=== PATIENT | female | born 1955 | race Caucasian/White ===

== ENCOUNTER 2018-09-10 14:56 | Outpatient (CLI) | payer MEDICARE, MEDICAID ==
[~2018-09-10 14:56] MED LIST: DEXL60CA3 PO; FIORINAL PO; GABA-338 PO; GUAI600T45 PO; IBUP-1986 PO; PHEN-786 PO; ROSU10TA PO; TRAZ50TA54 PO; ZOL50T PO
[2018-09-10 16:02] LABS: BASOPHILS % (AUTO) 0.7 % (0-1); EOSINOPHILS # (AUTO) 0.1 X10'3 (0-0.9); EOSINOPHILS % (AUTO) 2.6 % (0-6); HEMATOCRIT 44.2 % (35.0-45.0); LYMPHOCYTES # (AUTO) 1.4 X10'3 (1.1-4.8); LYMPHOCYTES % (AUTO) 25.4 % (21-51); MEAN CORPUSCULAR HEMOGLOBIN 36.2 PG (27.0-31.0); MEAN CORPUSCULAR HGB CONC 33.9 g/dL (33.0-36.5); MEAN CORPUSCULAR VOLUME 106.7 FL (78-98); MEAN PLATELET VOLUME 6.6 FL (7.4-10.4); MONOCYTES # (AUTO) 0.5 X10'3 (0-0.9); MONOCYTES % (AUTO) 8.9 % (2-12); NEUTROPHILS # (AUTO) 3.5 X10'3 (1.8-7.7); NEUTROPHILS % (AUTO) 62.4 % (42-75); PLATELET COUNT 341 X10'3 (140-440); RED BLOOD COUNT 4.15 X10'6 (4.20-5.60); RED CELL DISTRIBUTION WIDTH 13.5 % (11.5-14.5); WHITE BLOOD COUNT 5.7 X10'3 (4.5-11.0)
[2018-09-10 16:17] LABS: ALANINE AMINOTRANSFERASE 30 U/L (12-78); ALBUMIN 3.7 G/DL (3.4-5.0); ALKALINE PHOSPHATASE 120 IU/L (46-116); ANION GAP 11 (8-16); ASPARTATE AMINO TRANSFERASE 18 U/L (10-37); BILIRUBIN,TOTAL 0.3 MG/DL (0.1-1.0); BLOOD UREA NITROGEN 11 MG/DL (7-18); BUN/CREATININE RATIO 12.8 (6.6-38.0); CHLORIDE 107 MMOL/L (99-107); CREATININE 0.86 MG/DL (0.40-0.90); GLUCOSE 98 MG/DL (70-104); POTASSIUM 4.1 MMOL/L (3.5-5.1); SODIUM 143 MMOL/L (135-145); TOTAL CARBON DIOXIDE 25.2 MMOL/L (24-32); TOTAL PROTEIN 7.3 G/DL (6.4-8.2); eGFR 66 ML/MIN
[2018-09-10 16:30] LABS: PARTIAL THROMBOPLASTIN TIME 29 SECONDS (22-32)
== END 2018-09-10 23:59 | disposition home or self-care (01) ==
LOC: LAB 14:56
PROVIDERS: ATTEND Otolaryngology
DX: D69.1 Qualitative platelet defects (principal); I10 Essential (primary) hypertension; Z90.710 Acquired absence of both cervix and uterus; Z87.891 Personal history of nicotine dependence
CPT/HCPCS: 36415; 80053; 85025; 85576; 85610; 85730

== ENCOUNTER 2019-04-29 19:40 | Emergency (ER) | payer MEDICARE, MEDICAID ==
[~2019-04-29] VITALS: Ht 157.5 cm; Wt 65.9 kg
[~2019-04-29 19:40] MED LIST changes: -ROSU10TA PO; +ROSU10TA2 PO; +SERT-153 PO; -ZOL50T PO
[2019-04-29] MEDS ORDERED: ringers solution, lactated 1000ml IV soln IV ONE (20:10)
[2019-04-29 20:37] LABS: UA COLLECTION TYPE CLN CATCH MIDSTREAM
[2019-04-29 20:38] LABS: CLARITY,URINE CLEAR (Clear); COLOR,URINE YELLOW (Yellow); GLUCOSE, URINE NEGATIVE (Neg); KETONES,URINE NEGATIVE (Neg); LEUKOCYTE ESTERASE ,URINE NEGATIVE (Neg); NITRITES, URINE NEGATIVE (Neg); OCCULT BLOOD,URINE NEGATIVE (Neg); PROTEIN,URINE NEGATIVE (Neg); UROBILINOGEN,URINE 0.2 E.U/dL (0.2-1.0)
[2019-04-29 20:44] LABS: BASOPHILS # (AUTO) 0.1 X10'3 (0-0.2); BASOPHILS % (AUTO) 0.6 % (0-1); EOSINOPHILS # (AUTO) 0.2 X10'3 (0-0.9); EOSINOPHILS % (AUTO) 1.8 % (0-6); HEMATOCRIT 46.2 % (35.0-45.0); HEMOGLOBIN 15.9 g/dl (12.0-16.0); LYMPHOCYTES # (AUTO) 1.9 X10'3 (1.1-4.8); MEAN CORPUSCULAR HEMOGLOBIN 37.5 PG (27.0-31.0); MEAN CORPUSCULAR HGB CONC 34.4 g/dL (33.0-36.5); MEAN CORPUSCULAR VOLUME 109.1 FL (78-98); MEAN PLATELET VOLUME 6.6 FL (7.4-10.4); MONOCYTES # (AUTO) 0.7 X10'3 (0-0.9); MONOCYTES % (AUTO) 7.2 % (2-12); NEUTROPHILS # (AUTO) 6.3 X10'3 (1.8-7.7); NEUTROPHILS % (AUTO) 69.4 % (42-75); PLATELET COUNT 321 X10'3 (140-440); RED BLOOD COUNT 4.23 X10'6 (4.20-5.60); RED CELL DISTRIBUTION WIDTH 13.7 % (11.5-14.5); WHITE BLOOD COUNT 9.1 X10'3 (4.5-11.0)
[2019-04-29 20:55] LABS: ALANINE AMINOTRANSFERASE 32 U/L (12-78); ALBUMIN 4.1 G/DL (3.4-5.0); ALBUMIN/GLOBULIN RATIO 1.1 (1.1-1.5); ALKALINE PHOSPHATASE 130 IU/L (46-116); ANION GAP 13 (8-16); ASPARTATE AMINO TRANSFERASE 21 U/L (10-37); BILIRUBIN,TOTAL 0.4 MG/DL (0.1-1.0); BLOOD UREA NITROGEN 11 MG/DL (7-18); BUN/CREATININE RATIO 13.4 (6.6-38.0); CHLORIDE 107 MMOL/L (99-107); CREATININE 0.82 MG/DL (0.40-0.90); GLUCOSE 98 MG/DL (70-104); POTASSIUM 3.9 MMOL/L (3.5-5.1); SODIUM 141 MMOL/L (135-145); TOTAL CARBON DIOXIDE 21.4 MMOL/L (24-32); TOTAL PROTEIN 7.9 G/DL (6.4-8.2); eGFR 70 ML/MIN
[2019-04-29] MEDS ORDERED: iohexol 300mg/ml 100ml inj. ONE (21:09)
[2019-04-29 21:44] VITALS: BP 162/79
== END 2019-04-29 22:58 | disposition home or self-care (01) ==
LOC: ER 19:43
DX: R10.31 Right lower quadrant pain (principal); R19.7 Diarrhea, unspecified; E78.00 Pure hypercholesterolemia, unspecified; I10 Essential (primary) hypertension; K21.9 Gastro-esophageal reflux disease without esophagitis; F31.9 Bipolar disorder, unspecified; Z90.49 Acquired absence of other specified parts of digestive tract; Z87.11 Personal history of peptic ulcer disease; Z90.710 Acquired absence of both cervix and uterus; Z98.890 Other specified postprocedural states; Z88.5 Allergy status to narcotic agent; Z79.899 Other long term (current) drug therapy
CPT/HCPCS: 36415; 74177; 80053; 81003; 83605; 85025; 85610; 96360; 99284; J7030; Q9967; 87324; 87449; J7120

== ENCOUNTER 2021-11-12 15:46 | Outpatient (CLI) | payer MEDICARE, MEDICAID | END 2021-11-12 23:59 | disposition home or self-care (01) | LOC: CARD DIAG 15:46 | PROVIDERS: ATTEND Family Medicine | DX: I08.0 Rheumatic disorders of both mitral and aortic valves (principal) | CPT/HCPCS: 93306 ==

== ENCOUNTER 2022-04-08 10:17 | Emergency (ER) | payer MEDICARE, MEDICAID ==
[~2022-04-08] VITALS: Ht 157.5 cm; Wt 63.6 kg
[2022-04-08 11:21] LABS: CLARITY,URINE SLIGHTLY CLOUDY (Clear); GLUCOSE, URINE NEGATIVE (Neg); KETONES,URINE NEGATIVE (Neg); LEUKOCYTE ESTERASE ,URINE SMALL (Neg); NITRITES, URINE NEGATIVE (Neg); OCCULT BLOOD,URINE TRACE-INTACT (Neg); PROTEIN,URINE NEGATIVE (Neg); UROBILINOGEN,URINE 0.2 E.U/dL (0.2-1.0)
[2022-04-08 11:22] LABS: COLOR,URINE STRAW (Yellow); UA COLLECTION TYPE CLN CATCH MIDSTREAM
[2022-04-08 11:23] LABS: BASOPHILS % (AUTO) 0.4 % (0-1); EOSINOPHILS # (AUTO) 0.2 X10'3 (0-0.9); EOSINOPHILS % (AUTO) 2.2 % (0-6); HEMATOCRIT 39.9 % (35.0-45.0); LYMPHOCYTES % (AUTO) 24.6 % (21-51); MEAN CORPUSCULAR HEMOGLOBIN 35.7 PG (27.0-31.0); MEAN CORPUSCULAR HGB CONC 35.1 g/dL (33.0-36.5); MEAN CORPUSCULAR VOLUME 101.8 FL (78-98); MEAN PLATELET VOLUME 6.6 FL (7.4-10.4); MONOCYTES # (AUTO) 0.7 X10'3 (0-0.9); MONOCYTES % (AUTO) 8.8 % (2-12); NEUTROPHILS # (AUTO) 5.2 X10'3 (1.8-7.7); PLATELET COUNT 298 X10'3 (140-440); RED BLOOD COUNT 3.92 X10'6 (4.20-5.60); RED CELL DISTRIBUTION WIDTH 13.3 % (11.5-14.5); WHITE BLOOD COUNT 8.1 X10'3 (4.5-11.0)
[2022-04-08 11:29] LABS: MUCUS STRANDS FEW /LPF (Neg); SQUAMOUS EPITHELIAL CELL,UR MODERATE /LPF (FEW); TRANSITIONAL EPI CELLS,URINE MODERATE /HPF
[2022-04-08 11:30] LABS: WBC CLUMPS,URINE MANY /HPF (NEGATIVE); WBC,URINE 20-30 /HPF (0-4)
[2022-04-08 11:31] LABS: BACTERIA,URINE FEW /HPF (Neg); RBC,URINE 0-2 /HPF (0-2)
[2022-04-08 11:38] LABS: ALANINE AMINOTRANSFERASE 21 U/L (12-78); ALBUMIN 3.7 G/DL (3.4-5.0); ALBUMIN/GLOBULIN RATIO 0.9 (1.1-1.5); ALKALINE PHOSPHATASE 116 IU/L (46-116); AMYLASE 68 U/L (25-115); ANION GAP 12 (8-16); ASPARTATE AMINO TRANSFERASE 22 U/L (10-37); BILIRUBIN,TOTAL 0.4 MG/DL (0.1-1.0); BLOOD UREA NITROGEN 11 MG/DL (7-18); BUN/CREATININE RATIO 12.2 (6.6-38.0); CALCIUM 9.5 MG/DL (8.5-10.1); CHLORIDE 105 MMOL/L (99-107); GLUCOSE 109 MG/DL (70-104); LIPASE 217 U/L (73-393); SODIUM 140 MMOL/L (135-145); TOTAL PROTEIN 7.6 G/DL (6.4-8.2); eGFR 62 ML/MIN
[2022-04-08 11:47] LABS: POTASSIUM 2.9 MMOL/L (3.5-5.1)
[2022-04-08] MEDS ORDERED: potassium Cl 20 mEq SR tablet PO STA (11:50)
[2022-04-08] MEDS ORDERED: FOSFOMYCIN TROMETHAMINE 3 GM PACKET PO ONE (12:45)
--- NOTE | 2022-04-08 12:58 | NUR ---
Spoke to pharmacy regarding abx, as pt has vancomycin allergy. Per pharmacist, pt ok to have fosfomycin.
[2022-04-08 13:20] VITALS: BP 140/69
== END 2022-04-08 13:30 | disposition home or self-care (01) ==
LOC: ER 10:18
DX: N39.0 Urinary tract infection, site not specified (principal); I10 Essential (primary) hypertension; K21.9 Gastro-esophageal reflux disease without esophagitis; E78.00 Pure hypercholesterolemia, unspecified; F31.9 Bipolar disorder, unspecified; Z90.49 Acquired absence of other specified parts of digestive tract; Z88.5 Allergy status to narcotic agent; Z88.1 Allergy status to other antibiotic agents; Z79.899 Other long term (current) drug therapy; Z88.6 Allergy status to analgesic agent
CPT/HCPCS: 36415; 71045; 80053; 81001; 82150; 83690; 85025; 87088; 99284

== ENCOUNTER 2022-05-21 08:41 | Inpatient (IN) | payer MEDICARE, MEDICAID ==
[~2022-05-21] VITALS: Ht 157.5 cm; Wt 63.2 kg
[2022-05-21] VITALS (24 sets, daily range): BP systolic 90–156; BP diastolic 59–118
[2022-05-21] MEDS ORDERED: normal saline 1000ml 1,000 ML IV PRN (09:05)
[2022-05-21] MEDS ORDERED: albumin 25% 100mL bottle x 1 IV PRN (09:05)
[2022-05-21 09:43] LABS: BASOPHILS # (AUTO) 0.1 X10'3 (0-0.2); BASOPHILS % (AUTO) 0.7 % (0-1); EOSINOPHILS # (AUTO) 0.2 X10'3 (0-0.9); EOSINOPHILS % (AUTO) 2.5 % (0-6); HEMATOCRIT 42.8 % (35.0-45.0); HEMOGLOBIN 14.5 g/dl (12.0-16.0); LYMPHOCYTES # (AUTO) 1.9 X10'3 (1.1-4.8); LYMPHOCYTES % (AUTO) 21.3 % (21-51); MEAN CORPUSCULAR HEMOGLOBIN 35.4 PG (27.0-31.0); MEAN CORPUSCULAR HGB CONC 33.9 g/dL (33.0-36.5); MEAN CORPUSCULAR VOLUME 104.6 FL (78-98); MEAN PLATELET VOLUME 6.4 FL (7.4-10.4); MONOCYTES # (AUTO) 0.9 X10'3 (0-0.9); MONOCYTES % (AUTO) 10.4 % (2-12); NEUTROPHILS # (AUTO) 5.9 X10'3 (1.8-7.7); NEUTROPHILS % (AUTO) 65.1 % (42-75); PLATELET COUNT 377 X10'3 (140-440); RED CELL DISTRIBUTION WIDTH 13.6 % (11.5-14.5); WHITE BLOOD COUNT 9.1 X10'3 (4.5-11.0)
[2022-05-21] MEDS ORDERED: ASPI-1264 PO (09:50)
[2022-05-21] MEDS ORDERED: SERT-432 PO (09:50)
[2022-05-21] MEDS ORDERED: METO-384 PO (09:50)
[2022-05-21] MEDS ORDERED: MONT-40 PO (09:50)
[2022-05-21] MEDS ORDERED: PROC-8 PO (09:51)
[2022-05-21] MEDS ORDERED: combivent inhaler (09:52)
[2022-05-21] MEDS ORDERED: LACT1CAP65 PO (09:53)
[2022-05-21] MEDS ORDERED: MULT-1074 PO (09:54)
[2022-05-21] MEDS ORDERED: [UNRECOGNIZED DRUG - OTHER] (09:54)
[2022-05-21] MEDS ORDERED: midazolam 1 mg/ML 2ml injection ONE ×2 (10:38→11:19)
[2022-05-21] MEDS ORDERED: fentaNYL/PF 50MCG/1 ML 2ML syringe ONE (10:38)
[2022-05-21] MEDS ORDERED: LIDOcaine 1% (10mg/ml) 2ml vial ONE ×2 (11:30→11:33)
[2022-05-21] MEDS ORDERED: IBUP-1984 PO (14:15)
[2022-05-21] MEDS ORDERED: magnesium hydroxide 30ml (MOM) UD suspension PO PRN (14:55)
[2022-05-21] MEDS ORDERED: mag hydrox/Alum hydrox/simeth 30ml oral suspension PO PRN (14:55)
[2022-05-21] MEDS ORDERED: acetaminophen 325mg tablet PO PRN (14:55)
[2022-05-21] MEDS ORDERED: LORazepam 0.5 MG tablet PO PRN (14:55)
[2022-05-21] MEDS ORDERED: ondansetron/PF 4mg/2ml inj IV PRN (14:55)
[2022-05-21] MEDS ORDERED: HYDROcodone/acetaminophen 5mg/325mg tablet PO PRN (14:55)
[2022-05-21] MEDS ORDERED: nicotine 14mg patch - 24hr TD ONE (15:10)
[2022-05-21] MEDS: HYDROcodone/acetaminophen 5mg/325mg tablet PO PRN (15:27)
[2022-05-21] MEDS ORDERED: ibuprofen tablet 400 MG TABLET PO PRN (16:10)
[2022-05-21] MEDS: docusate sod 100mg capsule PO SCH (20:44)
[2022-05-21] MEDS: traZODone 50mg tablet PO SCH (20:44)
[2022-05-21] MEDS: gabapentin 300mg capsule PO SCH (20:44)
[2022-05-21] MEDS ORDERED: montelukast 10mg tablet PO SCH (20:50)
[2022-05-21] MEDS: normal saline 1000ml 1,000 ML IV SCH (20:52)
--- NOTE | 2022-05-21 20:53 | NUR ---
Adjusted Singular and Zoloft administration time as patient takes those medications at HS at home not in the AM.
[2022-05-22] MEDS: sertraline 25mg tablet PO SCH ×2 (00:22→00:23)
[2022-05-22] MEDS: HYDROcodone/acetaminophen 5mg/325mg tablet PO PRN ×2 (00:31→09:07)
[2022-05-22] MEDS: normal saline 1000ml 1,000 ML IV SCH ×2 (01:53→11:55)
[2022-05-22 06:00] VITALS: BP 148/66
[2022-05-22 06:01] LABS: BASOPHILS # (AUTO) 0.1 X10'3 (0-0.2); BASOPHILS % (AUTO) 0.8 % (0-1); EOSINOPHILS # (AUTO) 0.2 X10'3 (0-0.9); EOSINOPHILS % (AUTO) 3.2 % (0-6); HEMATOCRIT 37.7 % (35.0-45.0); HEMOGLOBIN 12.9 g/dl (12.0-16.0); LYMPHOCYTES # (AUTO) 2.5 X10'3 (1.1-4.8); LYMPHOCYTES % (AUTO) 36.9 % (21-51); MEAN CORPUSCULAR HEMOGLOBIN 36.1 PG (27.0-31.0); MEAN CORPUSCULAR HGB CONC 34.2 g/dL (33.0-36.5); MEAN CORPUSCULAR VOLUME 105.8 FL (78-98); MEAN PLATELET VOLUME 6.3 FL (7.4-10.4); MONOCYTES # (AUTO) 0.7 X10'3 (0-0.9); MONOCYTES % (AUTO) 10.4 % (2-12); NEUTROPHILS # (AUTO) 3.4 X10'3 (1.8-7.7); NEUTROPHILS % (AUTO) 48.7 % (42-75); PLATELET COUNT 297 X10'3 (140-440); RED BLOOD COUNT 3.56 X10'6 (4.20-5.60); RED CELL DISTRIBUTION WIDTH 13.4 % (11.5-14.5); WHITE BLOOD COUNT 6.9 X10'3 (4.5-11.0)
[2022-05-22 06:22] LABS: ALBUMIN 3.2 G/DL (3.4-5.0); ANION GAP 6 (8-16); BLOOD UREA NITROGEN 12 MG/DL (7-18); BUN/CREATININE RATIO 14.1 (6.6-38.0); CALCIUM 8.6 MG/DL (8.5-10.1); CHLORIDE 110 MMOL/L (99-107); CREATININE 0.85 MG/DL (0.40-0.90); GLUCOSE 97 MG/DL (70-104); POTASSIUM 3.5 MMOL/L (3.5-5.1); SODIUM 143 MMOL/L (135-145); TOTAL CARBON DIOXIDE 27.2 MMOL/L (24-32); eGFR 66 ML/MIN
--- NOTE | 2022-05-22 06:34 | NUR ---
Patient in room [facility]. I have received report from Madina PAYAN and had the opportunity to ask questions and assume patient care.
[2022-05-22] MEDS ORDERED: lactobacillus rhamnosus 10,000 MMU CELLS/CAPSULE PO SCH (08:00)
[2022-05-22] MEDS ORDERED: nicotine 14mg patch - 24hr TD SCH (08:00)
[2022-05-22] MEDS ORDERED: multivitamins, therapeutics tablet PO SCH (08:00)
[2022-05-22] MEDS ORDERED: montelukast 10mg tablet PO SCH (08:00)
[2022-05-22] MEDS ORDERED: metoprolol succinate 25mg (24-HOUR) SR. Tablet PO SCH (08:00)
[2022-05-22] MEDS ORDERED: aspirin 325mg tablet PO SCH (08:00)
[2022-05-22] MEDS ORDERED: atorvastatin 20mg tablet PO SCH (08:00)
[2022-05-22] MEDS: traZODone 50mg tablet PO SCH (08:00)
[2022-05-22] MEDS ORDERED: sertraline 25mg tablet PO SCH (08:00)
[2022-05-22] MEDS: gabapentin 300mg capsule PO SCH ×2 (09:05→13:38)
[2022-05-22] MEDS: docusate sod 100mg capsule PO SCH (09:06)
[2022-05-22 11:00] VITALS: BP 132/56
[2022-05-22] MEDS ORDERED: LORazepam 0.5 MG tablet PO ONE (11:20)
[2022-05-22] MEDS ORDERED: NICO-631 TD (13:42)
--- NOTE | 2022-05-22 15:28 | NUR ---
PAGER ID: [phone] MESSAGE: [phone] Gabriela Barker: patients xray image is up, no report yet. she's trying to get out of here. is she cleared to go? thanks [phone]
--- NOTE | 2022-05-22 16:37 | NUR ---
PAGER ID: [phone] MESSAGE: [phone] Gabriela Barker: patient cleared for discharge. she is requesting Eunice to go home with. thank you! philipp [phone]
[2022-05-22] MEDS ORDERED: HYDR-3965 PO (17:00)
--- NOTE | 2022-05-22 17:30 | NUR ---
Discussed with patient the process it takes for a discharge to happen. She felt as though everyone had lied to her about getting discharged quicker. Offered to call her a taxi and told her all that I needed was an address for her to be dropped off at. She told me that she needed a norco prescription. Paged to get a prescription. By the time this was completed she was sitting outside on her own. patient has all belongings from room including cell phone and wallet to call taxi. she was trying to get ahold of family for a ride but now she is sitting out front. IV removed.
--- NOTE | 2022-05-22 17:35 | NUR ---
Student documentation: I have reviewed and agree with all interventions, assessments performed and documented by ORA Snell. Student Medication Administration: For this medication-pass time frame, all medication were reviewed, dispensed, administered and documented per hospital policy by ORA Snell.
--- NOTE | 2022-05-22 17:38 | NUR ---
Pt. 346B discussed with the pt. the process of discharge, went over discharge paperwork, pt. signed paperwork and it was placed in chart, IV removed. Pt stated that she wanted a prescription for [employer] for after her discharge, pt was told that nursing staff would contact MD regarding getting her a prescription to be sent home with but this would take time. Pt. stated that she was feeling very upset due to feeling like she was not being understood or listened to regarding her PTSD and felt that she was being lied to regarding when they would be going home and with her care. Pt. stated that they wanted to leave, nursing staff asked if they had a ride home and offered to call pt. a cab/taxi. Nursing staff paged MD in the process of waiting for response from MD the pt. left hospital with all belongings. Obtained order from for [employer] and was informed that MD saw pt. sitting on the bench outside of the main hospital entrance. Nursing staff took prescription order down to pt. at main hospital entrance and instructed on how to get this filled at their pharmacy. Nursing staff again asked if pt. had a ride home to which they stated no, asked if they were able to contact a family member/ friend to call. Pt. stated that they attempted to call mother but was not able to reach her and left message. Pt. then stated that she should just walk home, nursing staff advised against this due to pt. safety. Nursing staff then asked pt. if they had a family friend that they could call and they said that they could maybe call their son's boss to come pick her up but did not want them to see her like this and that she is not normally like this and felt that the nursing staff was thinking that she was crazy. Asked if she was able to call a cab and if she had a wallet to do so, she said yes but was not ready to. Nursing staff advised that she call family friend or cab. Nursing staff then told pt. that if she was not able to do this to go back to the front help desk and they would be able to help her call a cab. Pt. has cell phone and wallet on person and was sitting on the front entrance bench when nursing staff left.
== END 2022-05-22 17:00 | disposition home or self-care (01) | DRG 200 ==
LOC: SSTAY O 08:41 → PAS IN 15:00 → OBSVTOIN 15:00 → SUR 3N 19:56
PROVIDERS: ADMIT Family Medicine; ATTEND Family Medicine
PROC: 0BBL3ZX Excision of Left Lung, Percutaneous Approach, Diagnostic (ICD-10-PCS; principal; 2022-05-21)
PROC: 0W9B30Z Drainage of Left Pleural Cavity with Drainage Device, Percutaneous Approach (ICD-10-PCS; 2022-05-21)
DX: J95.811 Postprocedural pneumothorax (principal); C34.92 Malignant neoplasm of unspecified part of left bronchus or lung; R91.8 Other nonspecific abnormal finding of lung field; E78.5 Hyperlipidemia, unspecified; F17.210 Nicotine dependence, cigarettes, uncomplicated; F43.10 Post-traumatic stress disorder, unspecified; I10 Essential (primary) hypertension; F32.A Depression, unspecified; F41.9 Anxiety disorder, unspecified; G47.33 Obstructive sleep apnea (adult) (pediatric); K22.70 Barrett's esophagus without dysplasia; M79.7 Fibromyalgia; R53.82 Chronic fatigue, unspecified; Z87.442 Personal history of urinary calculi; Z90.710 Acquired absence of both cervix and uterus; Z88.5 Allergy status to narcotic agent; Z88.8 Allergy status to other drugs, medicaments and biological substances; Z79.899 Other long term (current) drug therapy; Z79.82 Long term (current) use of aspirin
CPT/HCPCS: 32408; 32557; 36415; 71045; 77012; 80048; 85025; 87081; 88173; 88305; 88341; 88342; 99152; 99153; A4421; A4615; A6223; A6258; C1729; C1769; G0378; J2250; J3010; J3490; J7030

== ENCOUNTER 2022-05-31 10:38 | Outpatient (CLI) | payer MEDICARE, MEDICAID ==
[~2022-05-31] VITALS: Ht 157.5 cm; Wt 62.6 kg
[~2022-05-31 10:38] MED LIST changes: +ASPI-1264 PO; -DEXL60CA3 PO; -FIORINAL PO; -GUAI600T45 PO; +HYDR-3965 PO; +IBUP-1984 PO; -IBUP-1986 PO; +LACT1CAP65 PO; +METO-384 PO; +MONT-40 PO; +MULT-1074 PO; +NICO-631 TD; -PHEN-786 PO; +PROC-8 PO; -SERT-153 PO; +SERT-432 PO; +[UNRECOGNIZED DRUG - OTHER]; +combivent inhaler
[2022-05-31] MEDS ORDERED: albuterol 2.5 MG/3 ML nebule NEB ONE (11:15)
== END 2022-05-31 23:59 | disposition home or self-care (01) ==
LOC: RT 10:38
PROVIDERS: ATTEND Family Medicine
DX: Z01.818 Encounter for other preprocedural examination (principal); R94.2 Abnormal results of pulmonary function studies; R06.02 Shortness of breath
CPT/HCPCS: 94060; 94760

== ENCOUNTER 2022-08-02 13:56 | Outpatient (CLI) | payer MEDICARE, MEDICAID ==
[~2022-08-02 13:56] MED LIST changes: -HYDR-3965 PO
== END 2022-08-02 23:59 | disposition home or self-care (01) ==
LOC: RAD 13:56
PROVIDERS: ATTEND Family Medicine
DX: C34.92 Malignant neoplasm of unspecified part of left bronchus or lung (principal); J90 Pleural effusion, not elsewhere classified; J98.11 Atelectasis; N63.0 Unspecified lump in unspecified breast
CPT/HCPCS: 71250

== ENCOUNTER 2022-08-13 16:47 | Outpatient (CLI) | payer MEDICARE, MEDICAID ==
[2022-08-13 17:47] LABS: BASOPHILS # (AUTO) 0.1 X10'3 (0-0.2); BASOPHILS % (AUTO) 0.7 % (0-1); EOSINOPHILS # (AUTO) 0.4 X10'3 (0-0.9); EOSINOPHILS % (AUTO) 5.6 % (0-6); HEMATOCRIT 39.5 % (35.0-45.0); HEMOGLOBIN 13.1 g/dl (12.0-16.0); LYMPHOCYTES # (AUTO) 1.5 X10'3 (1.1-4.8); MEAN CORPUSCULAR HEMOGLOBIN 34.9 PG (27.0-31.0); MEAN CORPUSCULAR HGB CONC 33.1 g/dL (33.0-36.5); MEAN CORPUSCULAR VOLUME 105.4 FL (78-98); MEAN PLATELET VOLUME 6.1 FL (7.4-10.4); MONOCYTES % (AUTO) 12.9 % (2-12); NEUTROPHILS # (AUTO) 4.6 X10'3 (1.8-7.7); NEUTROPHILS % (AUTO) 60.8 % (42-75); PLATELET COUNT 349 X10'3 (140-440); RED BLOOD COUNT 3.75 X10'6 (4.20-5.60); RED CELL DISTRIBUTION WIDTH 14.3 % (11.5-14.5); WHITE BLOOD COUNT 7.5 X10'3 (4.5-11.0)
[2022-08-13 18:06] LABS: TOTAL IRON BINDING CAPACITY 242 UG/DL (259-388)
[2022-08-13 18:11] LABS: ALANINE AMINOTRANSFERASE 20 U/L (12-78); ALBUMIN 3.3 G/DL (3.4-5.0); ALBUMIN/GLOBULIN RATIO 0.8 (1.1-1.5); ALKALINE PHOSPHATASE 116 IU/L (46-116); ANION GAP 11 (8-16); ASPARTATE AMINO TRANSFERASE 17 U/L (10-37); BILIRUBIN,TOTAL 0.3 MG/DL (0.1-1.0); BLOOD UREA NITROGEN 10 MG/DL (7-18); BUN/CREATININE RATIO 11.6 (6.6-38.0); CALCIUM 8.7 MG/DL (8.5-10.1); CHLORIDE 106 MMOL/L (99-107); CREATININE 0.86 MG/DL (0.40-0.90); FERRITIN 72 NG/ML (8-252); GLUCOSE 93 MG/DL (70-104); LACTATE DEHYDROGENASE 198 U/L (81-234); POTASSIUM 3.3 MMOL/L (3.5-5.1); SODIUM 141 MMOL/L (135-145); TOTAL CARBON DIOXIDE 24.5 MMOL/L (24-32); TOTAL PROTEIN 7.3 G/DL (6.4-8.2); eGFR 65 ML/MIN
[2022-08-13 18:27] LABS: % IRON SATURATION 27 % (11-46); IRON 66 UG/DL (49-151)
== END 2022-08-13 23:59 | disposition home or self-care (01) ==
LOC: LAB 16:47
PROVIDERS: ATTEND Internal Medicine Hematology & Oncology
DX: E83.110 Hereditary hemochromatosis (principal); D49.7 Neoplasm of unspecified behavior of endocrine glands and other parts of nervous system; E53.8 Deficiency of other specified B group vitamins; N18.30 Chronic kidney disease, stage 3 unspecified; R10.13 Epigastric pain
CPT/HCPCS: 36415; 80053; 82103; 82607; 82728; 83540; 83550; 83615; 84155; 84165; 84466; 85025

== ENCOUNTER 2022-09-16 12:13 | Outpatient (CLI) | payer MEDICARE, MEDICAID ==
[2022-09-16] MEDS ORDERED: iohexol 300mg/ml 100ml inj. ONE (12:50)
== END 2022-09-16 23:59 | disposition home or self-care (01) ==
LOC: RAD 12:13
PROVIDERS: ATTEND Family Medicine
DX: C34.90 Malignant neoplasm of unspecified part of unspecified bronchus or lung (principal); J43.9 Emphysema, unspecified; J90 Pleural effusion, not elsewhere classified; J84.89 Other specified interstitial pulmonary diseases
CPT/HCPCS: 71260; 74177; J3490; Q9967

== ENCOUNTER 2022-09-18 13:17 | Outpatient (CLI) | payer MEDICARE, MEDICAID | END 2022-09-18 23:59 | disposition home or self-care (01) | LOC: RAD 13:17 | PROVIDERS: ATTEND Family Medicine | DX: C34.90 Malignant neoplasm of unspecified part of unspecified bronchus or lung (principal); I67.82 Cerebral ischemia; I63.89 Other cerebral infarction; J34.89 Other specified disorders of nose and nasal sinuses | CPT/HCPCS: 70553; A9585 ==

== ENCOUNTER 2022-09-20 15:51 | Outpatient (CLI) | payer MEDICARE, MEDICAID ==
[~2022-09-20 15:51] MED LIST changes: +GADOTERATE MEGLUMINE 7.5 MMOL/15 ML VIAL IV ONE
== END 2022-09-20 23:59 | disposition home or self-care (01) ==
LOC: RT 15:51
PROVIDERS: ATTEND Family Medicine
DX: C34.90 Malignant neoplasm of unspecified part of unspecified bronchus or lung (principal); R94.2 Abnormal results of pulmonary function studies
CPT/HCPCS: 94010; 94727; 94729; A9575

== ENCOUNTER 2023-07-22 15:54 | Outpatient (CLI) | payer MEDICARE, MEDICAID ==
[~2023-07-22 15:54] MED LIST changes: -GADOTERATE MEGLUMINE 7.5 MMOL/15 ML VIAL IV ONE; +iohexol 300mg/ml 100ml inj. ONE
== END 2023-07-22 23:59 | disposition home or self-care (01) ==
LOC: RAD 15:54
PROVIDERS: ATTEND Otolaryngology
DX: J02.9 Acute pharyngitis, unspecified (principal); R22.9 Localized swelling, mass and lump, unspecified; H90.5 Unspecified sensorineural hearing loss
CPT/HCPCS: 70482; 70491; J3490; Q9967

== ENCOUNTER 2023-07-28 13:06 | Outpatient (CLI) | payer MEDICARE, MEDICAID ==
[~2023-07-28 13:06] MED LIST changes: -iohexol 300mg/ml 100ml inj. ONE
[2023-07-28] MEDS ORDERED: GADOTERATE MEGLUMINE 7.5 MMOL/15 ML VIAL IV ONE (18:08)
== END 2023-07-28 23:59 | disposition home or self-care (01) ==
LOC: RAD 13:06
PROVIDERS: ATTEND Family Medicine
DX: M50.30 Other cervical disc degeneration, unspecified cervical region; M48.02 Spinal stenosis, cervical region; M89.9 Disorder of bone, unspecified; C34.92 Malignant neoplasm of unspecified part of left bronchus or lung; Q76.49 Other congenital malformations of spine, not associated with scoliosis; X58.XXXA Exposure to other specified factors, initial encounter; Y93.89 Activity, other specified; Y92.89 Other specified places as the place of occurrence of the external cause; Y99.8 Other external cause status
CPT/HCPCS: 72156; A9575

== ENCOUNTER 2024-06-18 18:15 | Emergency (ER) | payer MEDICARE, MEDICAID ==
[~2024-06-18] VITALS: Ht 157.5 cm; Wt 71.8 kg
[2024-06-18 20:38] LABS: BASOPHILS # (AUTO) 0.1 X10'3 (0-0.2); BASOPHILS % (AUTO) 1.2 % (0-1); EOSINOPHILS # (AUTO) 0.3 X10'3 (0-0.9); EOSINOPHILS % (AUTO) 5.5 % (0-6); HEMATOCRIT 41.6 % (35.0-45.0); LYMPHOCYTES # (AUTO) 1.7 X10'3 (1.1-4.8); LYMPHOCYTES % (AUTO) 27.6 % (21-51); MEAN CORPUSCULAR HEMOGLOBIN 35.2 PG (27.0-31.0); MEAN CORPUSCULAR HGB CONC 33.7 g/dL (33.0-36.5); MEAN CORPUSCULAR VOLUME 104.4 FL (78-98); MEAN PLATELET VOLUME 6.3 FL (7.4-10.4); MONOCYTES # (AUTO) 0.6 X10'3 (0-0.9); NEUTROPHILS # (AUTO) 3.5 X10'3 (1.8-7.7); NEUTROPHILS % (AUTO) 56.7 % (42-75); PLATELET COUNT 305 X10'3 (140-440); RED BLOOD COUNT 3.99 X10'6 (4.20-5.60); RED CELL DISTRIBUTION WIDTH 13.4 % (11.5-14.5); WHITE BLOOD COUNT 6.1 X10'3 (4.5-11.0)
[2024-06-18 20:56] LABS: ALANINE AMINOTRANSFERASE 27 U/L (12-78); ALBUMIN 3.9 G/DL (3.4-5.0); ALKALINE PHOSPHATASE 121 IU/L (46-116); ANION GAP 8 (8-16); ASPARTATE AMINO TRANSFERASE 28 U/L (10-37); BILIRUBIN,TOTAL 0.4 MG/DL (0.1-1.0); BLOOD UREA NITROGEN 12 MG/DL (7-18); BUN/CREATININE RATIO 9.7 (10.0-20.0); CALCIUM 9.3 MG/DL (8.5-10.1); CHLORIDE 105 MMOL/L (99-107); CREATININE 1.24 MG/DL (0.40-0.90); GLUCOSE 95 MG/DL (70-104); SODIUM 141 MMOL/L (135-145); TOTAL CARBON DIOXIDE 28.4 MMOL/L (24-32); TOTAL PROTEIN 7.7 G/DL (6.4-8.2); eCRCL 33 ML/MIN; eGFR 43 ML/MIN
[2024-06-18 21:01] LABS: ETHANOL < 10 MG/DL (<10)
[2024-06-18 21:22] LABS: BILIRUBIN,URINE NEGATIVE (Neg); CLARITY,URINE CLEAR (Clear); COLOR,URINE YELLOW (Yellow); GLUCOSE, URINE NEGATIVE (Neg); KETONES,URINE NEGATIVE (Neg); LEUKOCYTE ESTERASE ,URINE NEGATIVE (Neg); NITRITES, URINE NEGATIVE (Neg); OCCULT BLOOD,URINE NEGATIVE (Neg); PROTEIN,URINE NEGATIVE (Neg); UROBILINOGEN,URINE 0.2 E.U/dL (0.2-1.0)
[2024-06-18 21:26] LABS: UA COLLECTION TYPE VOIDED
[2024-06-18 21:38] LABS: URINE AMPHETAMINE SCREEN NEGATIVE (Neg); URINE BARBITUATE SCREEN NEGATIVE (Neg); URINE BENZODIAZEPINES SCREEN NEGATIVE (Neg); URINE CANNABINOID SCREEN NEGATIVE (Neg); URINE COCAINE SCREEN NEGATIVE (Neg); URINE METHADONE SCREEN NEGATIVE (Neg); URINE OPIATE SCREEN NEGATIVE (Neg); URINE PHENCYCLIDINE SCREEN NEGATIVE (Neg)
[2024-06-18] MEDS ORDERED: normal saline 500ml IV soln 500 ML IV ONE (21:45)
[2024-06-18 23:41] LABS: MAGNESIUM 2.1 MG/DL (1.5-2.4)
[2024-06-19] MEDS: diphenoxylate/atropine tablet (Lomotil) PO ONE (00:18)
[2024-06-19 00:28] VITALS: BP 117/61; PULSE 84; RESP 16; TEMP 98.2; O2SAT 96
== END 2024-06-19 00:32 | disposition home or self-care (01) ==
LOC: ER 18:16
DX: A08.8 Other specified intestinal infections (principal); R25.2 Cramp and spasm; E78.00 Pure hypercholesterolemia, unspecified; I10 Essential (primary) hypertension; K21.9 Gastro-esophageal reflux disease without esophagitis; F32.A Depression, unspecified; Z90.49 Acquired absence of other specified parts of digestive tract; Z90.710 Acquired absence of both cervix and uterus; Z88.1 Allergy status to other antibiotic agents; Z79.82 Long term (current) use of aspirin; Z79.899 Other long term (current) drug therapy
CPT/HCPCS: 36415; 80053; 80305; 81003; 83735; 85025; 99285; G0480; 80320

== ENCOUNTER 2025-06-23 14:20 | Outpatient (CLI) | payer MEDICARE, MEDICAID ==
[~2025-06-23 14:20] MED LIST changes: +DOCU-148 PO; +IPRA4AER INH; +LACT1CAP26 PO; +LOSA25TA41 PO; +MAGN400O6 PO; +OMEP40CA21 PO; +UMEC1DIS INH
[2025-06-23 15:59] VITALS: PULSE 76; RESP 18; O2SAT 95
--- NOTE | 2025-06-24 15:23 | PROCEDURE NOTE - Respiratory ---
Procedure Note-Respiratory Providers to Copies To 1: VAIBHAV WELCH NP Procedure Name: This is a spirometry study dated June 23, 2025. There was also a lung diffusion measurement made as well. Spirometry measurements: The forced vital capacity is in the lower range of normal. The FEV1 measurement is clearly reduced. The FEV1 ratio is also reduced. All of the measured flow rates show substantial reduction. Bronchodilator was not administered as part of the study. Lung diffusion measurement: The DLCO measurement is clearly reduced. It is not ed that the KVO measurement is in fact significantly reduced while the alveolar volume measurement remains in the normal range. Overall conclusion: This study is abnormal. This patient shows evidence of obstructive ventilatory defect in the moderately severe category. This is consistent with the patient's history of smoking-related COPD. The lung diffusion measurement is reduced, which raises the possibility of a significant emphysema component. It is recommended the patient abstain from cigarette smo deann. Continued use of bronchodilator medication is recommended. We have a previous study for comparison dated September 20, 2022. Over the past 2-1/2 years the vital capacity has dropped from 2.29 L to 2.0 L. The FEV1 has dropped from 1.36 L to 1.13 L. Close pulmonary follow-up is recommended for this patient. ABI YARBROUGH MD Jun 24, 2025 15:22
== END 2025-06-23 23:59 | disposition home or self-care (01) ==
LOC: RT 14:20
PROVIDERS: ATTEND Nurse Practitioner Family
DX: C34.32 Malignant neoplasm of lower lobe, left bronchus or lung (principal); R91.1 Solitary pulmonary nodule
CPT/HCPCS: 94010; 94729; 94760